=== PATIENT | male | born 1985 | race Caucasian/White ===

== ENCOUNTER → 2017-07-21 | Outpatient (CLI) | payer OTHER ==
--- NOTE | 2017-07-21 17:01 | CONS ---
CONSULTATION REASON FOR CONSULTATION: Sleep apnea. This is a 32-year-old male patient who was diagnosed having obstructive sleep apnea more than 10 years ago. The exact diagnostic circumstances and location where the sleep study was done are not known to him. The patient was given a CPAP machine, and he currently has a ResMed S9 series. The machine is set at a pressure of 12 cm of water. However, this is not the original pressure that he was given. He has adjusted the pressure himself on multiple occasions. Note that he was morbidly obese, and he was weighing around 420 pounds, and currently he is down to 257 after undergoing a gastric bypass. He is coming in for reevaluation. He is sure that he still has residual obstructive sleep apnea, knowing that while off the treatment he is still snoring, waking up gasping for air, and he feels somnolent and sleepy. The patient has managed to purchase his own equipment and supplies online, and currently he is utilizing a full- face mask. He recently obtained medical insurance and he is coming in to be established at this our sleep clinic. He snores and he quits breathing off the treatment. He wakes up tired and sleepy off the treatment. He goes to bed around midnight and wakes up at 7 a.m. in the morning. He averages a good 6 to 7 hours of sleep. His current [place] Score is at 9. No substance abuse. No restlessness in the lower extremities. No sleepwalking or sleeptalking. No difficulty with his memory or concentration while on the treatment. No history of any motor vehicle accidents because of feeling drowsy or sleepy. As stated, no official documentation on his original diagnostic circumstances. PAST MEDICAL HISTORY: 1. JOSHUA. 2. Obesity, status post gastric bypass. PAST SURGICAL HISTORY: 1. Gastric bypass. 2. Facial reconstruction surgery. DRUG ALLERGIES: NOT KNOWN. OUTPATIENT MEDICATION: 1. Strattera 100 mg p.o. daily. 2. Chantix 1 mg twice a day. SOCIAL HISTORY: Nonsmoker. No history of alcoholism. No history of IV drugs. He is unemployed. FAMILY HISTORY: Negative for sleep apnea. REVIEW OF SYSTEMS: Twelve-point review of system was done. He denies having any insomnia. No nocturia. No grinding of the teeth. No sleepwalking or sleeptalking. Occasional dry mouth, especially if he has leaks around the mask. No anxiety or panic attacks. No palpitation. No heartburn. No restlessness in the lower extremities. No depression. He has no chronic pain. No altered mentation. No seizure activity. No other complaints otherwise. PHYSICAL EXAMINATION: BP is 136/75, pulse 74, respirations 16, temperature 97.6, saturation 98% on room air. Weight is 257. Height is 5 feet 7 inches, BMI 39.4. [place] score is 9. Neck size is 17-3/4 inches. GENERAL APPEARANCE: Calm, comfortable. No acute distress. Head is atraumatic, normocephalic. Neck is short, supple. Crowding of posterior pharynx. There is no goiter or neck masses. LUNGS: Diminished breath sounds; otherwise clear. Heart sounds are regular rate and rhythm. Normal S1, S2. No S3, S4. No murmurs. ABDOMEN: Obese, soft, nontender. No organomegaly. No direct tenderness, rebound tenderness or guarding. EXTREMITIES: No edema. No cyanosis or clubbing. Neurologically the patient is alert and oriented x3. No focal neurological deficits. PSYCH: Negative for anxiety or depression. SKIN: Negative for any wounds or ulceration. IMPRESSION: 1. Symptomatic obstructive sleep apnea. The patient is currently on a CPAP pressure of 12, yet this is not the original pressure that was given to him at the time of titration. Exact diagnostic circumstances are not known; as such, I am not sure as far as the severity of his original disease. 2. Chronic hypersomnia, especially while off treatment. 3. Morbid obesity, current body mass index 39.4, status post gastric bypass surgery. PLAN: 1. Encourage further weight loss. 2. Implement good sleep hygiene measures. 3. Proceed with a screening polysomnogram to re-evaluate the presence and severity of obstructive sleep apnea. 4. Will obviously need CPAP titration if sleep apnea is confirmed. 5. Give the patient a sample of an AirTouch full-face mask to be used until he undergoes and completes his sleep study. 6. Will continue to follow and make further recommendations based on his overall progress. MMODL / IJN: [id number] /
== END | disposition home or self-care (01) ==
LOC: SLEEP 14:08
PROVIDERS: ATTEND Internal Medicine Critical Care Medicine
DX: G47.33 Obstructive sleep apnea (adult) (pediatric) (principal); E66.01 Morbid (severe) obesity due to excess calories; Z98.84 Bariatric surgery status; Z98.890 Other specified postprocedural states; Z79.899 Other long term (current) drug therapy; Z68.39 Body mass index [BMI] 39.0-39.9, adult; Z99.89 Dependence on other enabling machines and devices
CPT/HCPCS: 99211

== ENCOUNTER → 2017-11-21 | Outpatient (CLI) | payer OTHER ==
--- NOTE | 2017-11-21 08:08 | MR ---
MR lumbar spine wo/w con Intervertebral disc degeneration, lumbar Gadavist Multiplanar, multiecho imaging of the lumbar spine was obtained without contrast on a 3 Pilar magnet. REFERENCE:None. FINDINGS: Paraspinal soft tissues are normal. There is a moderate levoscoliosis. Vertebral body height and alignment are maintained. Cord signal is maintained. The conus ends normall y at the level of the mid body of L2. At T12-L1, no definite abnormality is seen. At L1-2, there is a mild right-sided paracentral disc displacement. The intervertebral foramina are w ell maintained. There is mild facet arthropathy. At L2-3, there is disc space loss and disc desiccation. Intervertebral foramina are well maintained. There is a right paracentral disc displacement. There are hypertrophic changes in the facets. There i s minimal trefoiling of the thecal sac. At L3-4, there is mild disc space loss. Intervertebral foramina appear well maintained. There is a di ffuse disc displacement. There are hypertrophic changes in the facets. There is mild trefoiling of th e thecal sac. At L4-5, intervertebral foramina are well maintained. There is a diffuse disc displacement. This hype rtrophic change in the facets. At L5-S1, there is mild hypertrophic change in the facets. IMPRESSION: 1. DIFFUSE DEGENERATIVE DISC DISEASE AND FACET ARTHROPATHY. 2. NO SIGNIFICANT COMPRESSIVE DISCOPATHY OR NEURAL COMPRESSION.
== END | disposition home or self-care (01) ==
LOC: RADMRIMAIN 07:08
PROVIDERS: ATTEND Physician Assistant
DX: M51.36 Other intervertebral disc degeneration, lumbar region (principal); M46.96 Unspecified inflammatory spondylopathy, lumbar region
CPT/HCPCS: 72158; A9581

== ENCOUNTER → 2017-12-09 | Outpatient (CLI) | payer OTHER ==
--- NOTE | 2017-12-09 12:24 | PN ---
PROGRESS NOTE A 32-year-old male patient coming in for a compliance check regarding obstructive sleep apnea. The patient is 32 years old and he was diagnosed having severe symptomatic obstructive sleep apnea with an AHI of 37 and currently on a CPAP pressure of 14 cm of water. He is doing extremely well. He is benefitting from the treatment. His sleep quality is improved. He is waking up refreshed and alert during the day. No problems while utilizing his CPAP machine. No headaches. No aerophagia. No nocturnal nighttime shortness of breath or heartburn. On the compliance data the patient has been achieving more than 4 hours more than 90% of the time. His average CPAP is around 6.8 hours per night. Leak factor is 22 L/minute and AHI while on treatment is down to 2.6. His [place] score is also down to 2. REVIEW OF SYSTEMS: A 12-point review of system was done. Positive findings are as mentioned in history of present illness. PHYSICAL EXAMINATION: BP is 148/81, pulse 71, respirations 18, weight is 269, temperature 98.1, [place] Score is 2. GENERAL APPEARANCE: Calm, comfortable. HEENT: Atraumatic, normocephalic. NECK: Supple. There is no JVD. No goiter or neck masses. LUNGS: Clear to auscultation. HEART: Sounds regular rate and rhythm. Normal S1, S2. No S3, S4. No murmurs. ABDOMEN: Soft, nontender. No organomegaly. EXTREMITIES: No edema. No cyanosis or clubbing. NEUROLOGIC: Alert and oriented x3. No focal neurological deficits. PSYCHIATRY: Negative for anxiety or depression. IMPRESSION: 1. Severe symptomatic obstructive sleep apnea with an apnea-hypopnea index of 37, currently on CPAP pressure of 14. 2. Hypersomnia improved with CPAP therapy. [place] score is down to 2. 3. Obesity with a body mass index of 39. PLAN: Treatment is successful. Continue CPAP therapy at the same level of pressure. Encourage weight loss. No need for any adjustment of the pressure setting, treatment is successful. See me back in a year's time in followup, earlier if needed. MMODL / IJN: [id number] /
== END | disposition home or self-care (01) ==
LOC: SLEEP 09:58
PROVIDERS: ATTEND Internal Medicine Critical Care Medicine
DX: G47.33 Obstructive sleep apnea (adult) (pediatric) (principal); E66.9 Obesity, unspecified; Z99.89 Dependence on other enabling machines and devices; Z68.39 Body mass index [BMI] 39.0-39.9, adult